=== PATIENT | female | born 1965 | race Caucasian/White ===

== ENCOUNTER 2016-04-30 02:54 | Emergency (ER) | payer OTHER ==
[2016-04-30 03:00] VITALS: RESP 16
--- NOTE | 2016-04-30 03:13 | EDPHY ---
H & P Stated Complaint: L hip pain HPI/ROS: HPI CHIEF COMPLAINT: Bilateral wrist pain, left hip pain HISTORY OF PRESENT illness: this patient very pleasant 51-year-old female, only significant past medical history is for attention deficit hyperactivity disorder, she presents to the emergency room at 3 o'clock in the morning with left lateral hip pain worse over the past week but has had this present for 3 months. Also tells me that she has had sharp stabbing pain in her wrist that goes to her hands consistent with most likely carpal tunnel syndrome. Patient tells me she just moved here to [place] approximately few months ago from [place] she does not have a local physician. She presents emergency room with complaint of left lateral hip pain it is located in her deep left gluteus region the pain does not radiate anywhere however it is worse when she goes to lift up her leg to walk up stairs as well as when she goes to laterally Move her legs especially against resistance. She denies trauma, denies midline lumbar pain, denies sharp stabbing pain radiating down her leg. Pain is located left lateral hip deep in her gluteus region. Denies abdominal pain, fever, chest pain or shortness of breath. Additionally patient tells me that she works from home from the keyboard she does have early anomaly appropriate keyboard she tells me she has been wearing wrist splints at night has she is having significant wrist pain. She tells me it is bilateral. It is worse at night better during the day. It is a burning and sharp pain that radiates to her wrist into her fingers bilateral hands. Denies trauma.She drove here by private vehicle she plans on driving home. She does not want any IV narcotics in the emergency room. She agrees for IV Toradol. Past Medical History: Attention deficit hyperactivity disorder Past Surgical History: denies significant surgical history Social History: denies use of drugs alcohol tobacco products, lives in [place] , private residence Family History: Noncontributory ROS REVIEW OF SYSTEMS: A comprehensive 10 point review of systems is otherwise negative aside from elements mentioned in the history of present illness. Exam Constitutional triage nursing summary reviewed, vital signs reviewed, awake/ alert. Eyes normal conjunctivae and sclera, EOMI, PERRLA. HENT normal inspection, atraumatic, moist mucus membranes, no epistaxis, neck supple/ no meningismus, no raccoon eyes. Respiratory clear to auscultation bilaterally, normal breath sounds, no respiratory distress, no wheezing. Cardiovascular rate normal, regular rhythm, no murmur, no edema, distal pulses normal. Gastrointestinal soft, non-tender, no rebound, no guarding, normal bowel sounds, no distension, no pulsatile mass. Genitourinary no CVA tenderness. Musculoskeletal to palpation left lateral hip deep palpation, also has tenderness with lateral leg movement against resistance as well as lifting her leg up against resistance, her leg is neurovascularly intact, warm extremity good pulses. Sensation intact. No rash, no signs of obvious trauma. no midline vertebral tenderness, full range of motion, no calf swelling, no tenderness of extremities, no meningismus, good pulses, neurovascularly intact. Skin pink, warm, & dry, no rash, skin atraumatic. Neurologic awake, alert and oriented x 3, AAOx3, moves all 4 extremities equally, motor intact, sensory intact, CN II-XII intact, normal cerebellar, normal vision, normal speech. Psychiatric normal mood/affect. Heme/Lymph/Immune no lymphadenopathy. Differential Diagnosis: Includes but is not limited to in a particular order, hip strain, mom deep muscle strain, muscle pull, gluteus muscle injury, doubt hip fracture, carpal tunnel syndrome, doubt deep space abscess Medical Decision Making: Patient had an IV established receive 30 mg IV Toradol for pain control, will obtain left lateral hip x-ray, will obtain basic blood work including CK a CBC and BMP. She will be gently hydrated with fluids. I have also will supply her with wrist splints for carpal tunnel. Re-evaluation: ED x-ray: left hip: two view: negative for acute bony abnormality specifically I do not appreciate fracture dislocation or any obvious abnormality. CT scan of the pelvis with IV contrast The results of the study are negative for anything acute specifically nothing to explain left lateral hip pain no acute inflammation visualized. The study was read by Dr. Kaur. I viewed the images myself on the PACS system. Source: Patient - Personal History LMP (Females 10-55): Post Menopausal Current Tetanus/Diphtheria Vaccine: No - Medical/Surgical History Hx Asthma: No Hx Chronic Respiratory Disease: No Hx Diabetes: No Hx Cardiac Disease: No Hx Renal Disease: No Hx Cirrhosis: No Hx Alcoholism: No Hx HIV/AIDS: No Hx Splenectomy or Spleen Trauma: No Other PMH: PSHx: fusion C1-C5, c section, tonsillectomy. PMHx: cluster headaches, fibromyalgia - Social History Smoking Status: Current every day smoker Constitutional: Initial Vital Signs Temperature (C) 36.4 C 04/30/16 02:56 Heart Rate 95 04/30/16 02:56 Respiratory Rate 16 04/30/16 02:56 Blood Pressure 139/93 H 04/30/16 02:56 O2 Sat (%) 96 04/30/16 02:56 O2 Delivery Mode Room Air Allergies/Adverse Reactions: No Known Allergies Allergy (Unverified 04/30/16 02:56) Home Medications: Medication Instructions Recorded Hydrocodone/APAP 5/325 [Hillman 1 - 2 tab PO Q4H PRN #20 tab 04/30/16 5/325] Ibuprofen [Motrin (*)] 800 mg PO Q6-8PRN #14 tab 04/30/16 Melatonin 04/30/16 Vyvanse 04/30/16 Medical Decision Making - Data Points Laboratory Results: Laboratory Results 04/30/16 03:47 04/30/16 03:47 04/30/16 03:47 WBC 5.50 10^3/uL (3.80-9.50) RBC 4.68 10^6/uL (4.18-5.33) Hgb 14.6 g/dL (12.6-16.3) Hct 41.9 % (38.0-47.0) MCV 89.5 fL (81.5-99.8) MCH 31.2 pg (27.9-34.1) MCHC 34.8 g/dL (32.4-36.7) RDW 12.7 % (11.5-15.2) Plt Count 348 10^3/uL (150-400) MPV 10.0 fL (8.7-11.7) Neut % (Auto) 63.2 % (39.3-74.2) Lymph % (Auto) 19.1 % (15.0-45.0) [place] % (Auto) 13.1 H % (4.5-13.0) Eos % (Auto) 3.3 % (0.6-7.6) Baso % (Auto) 1.1 % (0.3-1.7) Nucleat RBC Rel Count 0.0 % (0.0-0.2) Absolute Neuts (auto) 3.48 10^3/uL (1.70-6.50) Absolute Lymphs (auto) 1.05 10^3/uL (1.00-3.00) Absolute Monos (auto) 0.72 10^3/uL (0.30-0.80) Absolute Eos (auto) 0.18 10^3/uL (0.03-0.40) Absolute Basos (auto) 0.06 10^3/uL (0.02-0.10) Absolute Nucleated RBC 0.00 10^3/uL (0-0.01) Immature Gran % 0.2 % (0.0-1.1) Immature Gran # 0.01 10^3/uL (0.00-0.10) Sodium 141 mEq/L (134-144) Potassium 4.6 mEq/L (3.5-5.2) Chloride 109 mEq/L (97-110) Carbon Dioxide 22 mEq/l (22-31) Anion Gap 10 mEq/L (8-16) BUN 16 mg/dL (7-23) Creatinine 0.6 mg/dL (0.6-1.0) Estimated GFR > 60 Glucose 92 mg/dL (70-100) Calcium 10.2 mg/dL (8.5-10.4) Creatine Kinase 69 IU/L (0-156) Medications Given: Discontinued Medications Sodium Chloride (Ns) 1,000 mls @ 0 mls/hr IV ONCE ONE PRN Reason: Wide Open Stop: 04/30/16 03:32 Last Admin: 04/30/16 03:47 Dose: 1,000 mls Ketorolac Tromethamine (Toradol) 30 mg IVP EDNOW ONE Stop: 04/30/16 03:32 Last Admin: 04/30/16 03:47 Dose: 30 mg Departure - Departure Disposition: Home, Routine, Self-Care Clinical Impression: Carpal tunnel syndrome Qualifiers: Laterality: bilateral Qualifier Code: (G56.03) Carpal tunnel syndrome, bilateral upper limbs Arthralgia of hip Qualifiers: Laterality: left Qualifier Code: (M25.552) Pain in left hip Condition: Good Instructions: Paresthesia (ED) Additional Instructions: 1. he most likely have carpal tunnel syndrome. I do recommend he stay in wrist splints. Also follow up with Orthopedic surgery. Referrals: OUT OF STATE,. [Primary Care Provider] - As per Instructions Sacha Chong MD [Medical Doctor] - As per Instructions Zehra Stevens MD [Medical Doctor] - As per Instructions Prescriptions: Ibuprofen [Motrin (*)] 800 mg PO Q6-8PRN #14 tab Hydrocodone/APAP 5/325 [Hillman 5/325] 1 - 2 tab PO Q4H PRN #20 tab PRN Reason: Pain, Moderate
[2016-04-30] MEDS ORDERED: KETOROLAC 30 MG/1 ML SDV IVP ONE (03:31)
[2016-04-30] MEDS ORDERED: NS 1,000 ML IV ONE (03:31)
[2016-04-30 04:24] LABS: % IMMATURE GRANULYOCYTES 0.2 % (0.0-1.1); ABSOLUTE IMMATURE GRANULOCYTES 0.01 10^3/uL (0.00-0.10); ADD DIFF? NO; ADD MORPH? NO; ADD SCAN? NO; ATYPICAL LYMPHOCYTE FLAG 20 (0-99); FRAGMENT RBC FLAG 0 (0-99); HEMATOCRIT 41.9 % (38.0-47.0); HEMOGLOBIN 14.6 g/dL (12.6-16.3); LEFT SHIFT FLG 0 (0-99); LIPEMIA HEMOLYSIS FLAG 90 (0-99); MEAN CELL HEMOGLOBIN 31.2 pg (27.9-34.1); MEAN CELL HEMOGLOBIN CONCENTR. 34.8 g/dL (32.4-36.7); MEAN CELL VOLUME 89.5 fL (81.5-99.8); PLATELET CLUMPS FLAG 0 (0-99); PLATELET COUNT 348 10^3/uL (150-400); RED BLOOD CELL COUNT 4.68 10^6/uL (4.18-5.33); RED CELL DISTRIBUTION WIDTH 12.7 % (11.5-15.2)
[2016-04-30 04:30] LABS: ANION GAP 10 mEq/L (8-16); CALCIUM 10.2 mg/dL (8.5-10.4); CARBON DIOXIDE 22 mEq/l (22-31); CHLORIDE 109 mEq/L (97-110); CREATININE 0.6 mg/dL (0.6-1.0); GLOMERULAR FILTRATION RATE > 60; GLUCOSE 92 mg/dL (70-100); POTASSIUM 4.6 mEq/L (3.5-5.2); SODIUM 141 mEq/L (134-144)
[2016-04-30] MEDS ORDERED: IOPAMIDOL (ISOVUE-300) 100 ML BTL IV ONE (05:09)
[2016-04-30 05:10] VITALS: BP 111/77; PULSE 79; TEMP 97.9; O2SAT 94
[2016-04-30] MEDS ORDERED: HYDROCOD/APAP 5/325 PREPACK#6 BTL TAKEHOME ONE ×2 (05:52→05:53)
--- NOTE | 2016-04-30 08:50 | CT ---
CT Scan of the Pelvis (Without Contrast) Clinical Indications: Left hip pain a 51-year-old female Technique: Multidetector helical CT imaging was obtained from the umbilicus to the symphysis pubis an d was manipulated in multiple projections on the independent 3D computer workstation by the radiologi st. Contrast was not given. Soft tissue and bone windows are reviewed. Dose reduction techniques we re utilized. Findings: No pelvic masses are seen. Bones and joints are intact. No fracture or dislocation. Spec ifically, no abnormality is seen referable to the symptomatic left hip. No free fluid in the pelvis. No abnormality is seen referable to the gluteal musculature. Impression: Negative CT of the pelvis and left hip without contrast. The study was performed as an emergency on-call case and discussed by telephone with Dr. Larios at 0 540 hours. The final interpretation is concordant with the original communication.
--- NOTE | 2016-04-30 09:25 | DX ---
AP Pelvis - Frogleg Lateral View of the Left Hip, Two Views, 3:40 a.m. Clinical History: 51-year-old female with hip pain. Comparison Study: None. Findings: Bone mineralization is preserved. Each femoral head is well-seated within its respective ac etabulum. There is no acute fracture or dislocation. The femoral-acetabular joint spaces are preserve d. The ischial pubic rami are intact. There is no symphysis pubis or SI joint diastasis. Impression: No acute osseous abnormality. At Dr. Gabriel Mathews's request, CT imaging of the pelvis was subsequently requested, and separately reported.
== END 2016-04-30 06:00 | disposition home or self-care (01) ==
DX: G56.03 Carpal tunnel syndrome, bilateral upper limbs (principal); M25.552 Pain in left hip; F17.200 Nicotine dependence, unspecified, uncomplicated
CPT/HCPCS: 96374; J1885; L3908; Q9967